=== PATIENT | female | born 1960 | race Two or more races ===

== ENCOUNTER 2018-04-05 06:52 | Day surgery (SDC) | payer OTHER ==
[2018-04-05] MEDS ORDERED: SOD CHLORIDE 0.9% 1,000 ML IV (12:00)
[2018-04-05] MEDS ORDERED: CEFAZOLIN 2 GM/50 ML (PMX) 50 ML IVPB (12:00)
[2018-04-05] MEDS ORDERED: ROCURONIUM 50 MG INJ (13:32)
[2018-04-05] MEDS ORDERED: FENTAnyl 50 MCG/ML VIAL (13:33)
[2018-04-05] MEDS ORDERED: PROPOFOL 20 ML (13:33)
[2018-04-05] MEDS ORDERED: DEXAMETHASONE 4 MG/ML 1 ML INJ (13:33)
[2018-04-05] MEDS ORDERED: MIDAZOLAM 1 MG/ML 2 ML INJ (13:33)
[2018-04-05] MEDS ORDERED: GLYCOPYRROLATE 0.4 MG INJ (13:33)
[2018-04-05] MEDS ORDERED: ONDANSETRON 4 MG INJ (13:33)
[2018-04-05] MEDS ORDERED: CEFAZOLIN 1 GM INJ (13:33)
[2018-04-05] MEDS ORDERED: NEOSTIGMINE 3 MG/3 ML SYRINGE (13:33)
[2018-04-05] MEDS ORDERED: IPRATROPIUM (NEB) 0.5 MG/2.5 ML AMP HHN (14:00)
[2018-04-05] MEDS ORDERED: HYDROmorphONE 1 MG/5 ML IV SYRINGE IV ×3 (14:00)
[2018-04-05] MEDS ORDERED: EPHEDrine SULFATE 50 MG/5 ML SYG IV (14:00)
[2018-04-05] MEDS ORDERED: hydrALAzine 20 MG INJ IV (14:00)
[2018-04-05] MEDS ORDERED: OXYCODONE/ACETAMINOPHEN (5/325) TAB PO (14:00)
[2018-04-05] MEDS ORDERED: TRIMETHOBENZAMIDE 100 MG/ML VIAL IM (14:00)
[2018-04-05] MEDS ORDERED: ALBUTEROL 0.083% (NEB) 2.5 MG/3 ML AMP HHN (14:00)
[2018-04-05] MEDS ORDERED: DIPHENHYDRAMINE 50 MG INJ IV (14:00)
[2018-04-05] MEDS ORDERED: MEPERIDINE 25 MG INJ IV (14:00)
[2018-04-05] MEDS ORDERED: MIDAZOLAM 1 MG/ML 2 ML INJ IV (14:00)
[2018-04-05] MEDS ORDERED: LABETALOL HCL 20MG INJ IV (14:00)
[2018-04-05] MEDS ORDERED: FENTAnyl 50 MCG/ML VIAL IV ×2 (14:00)
[2018-04-05] MEDS: BUPIVACAINE 0.25% (MPF) 30 ML INJ (14:03)
[2018-04-05] MEDS ORDERED: SUGAMMADEX SODIUM 200 MG/2 ML VIAL IV (14:20)
[2018-04-05] MEDS ORDERED: HYDROCODONE/APAP (5/325) TAB PO (14:30)
[2018-04-05] MEDS: ONDANSETRON 4 MG INJ IV (15:06)
[2018-04-05] MEDS: FENTAnyl 50 MCG/ML VIAL IV ×2 (15:16→15:23)
[2018-04-05] MEDS: OXYCODONE/ACETAMINOPHEN (5/325) TAB PO (16:20)
== END 2018-04-05 16:30 | disposition home or self-care (01) ==
LOC: SDS 06:52
DX: R92.1 Mammographic calcification found on diagnostic imaging of breast (principal); K21.9 Gastro-esophageal reflux disease without esophagitis
CPT/HCPCS: 14001; 88307